=== PATIENT | female | born 1985 | race Caucasian/White ===

== ENCOUNTER → 2017-05-30 | Emergency (ER) | payer OTHER ==
[~2017-05-30] VITALS: Ht 154.9 cm; Wt 85.7 kg
[~2017-05-30] MED LIST: BISACODYL5 MG; MIRALAX510 GM PO; ZANTAC150 M3
== END | disposition home or self-care (01) ==
LOC: ER 08:01
DX: R10.32 Left lower quadrant pain (principal)